=== PATIENT | male | born 2000 | race Caucasian/White ===

== ENCOUNTER 2021-04-13 14:58 | Emergency (ER) | payer MEDICAID, SELFPAY ==
--- NOTE | ~2021-04-13 | CT_ITS ---
EXAMINATION: CT HEAD WITHOUT CONTRAST CLINICAL INFORMATION: Intoxicated. Fall. COMPARISON: None available. TECHNIQUE: Contiguous axial imaging was performed from the skull base to vertex without intravenous administration of contrast. This CT examination was performed using dose optimization techniques as appropriate, variously including the following: *Automated exposure control. *Adjustment of mA and/or kV according to patient size (this includes techniques or standardized protocols for targeted exams where dose is matched to indication/reason for exam; i.e. extremities or head). *Use of iterative reconstruction technique. DLP: 711 mGy-cm FINDINGS: There is no evidence of acute intracranial hemorrhage or edematous territorial infarction. There is no abnormal attenuation within the brain parenchyma. Becerra-white matter differentiation is preserved. The ventricles are normal in size and configuration. No evidence for obstructive hydrocephalus. No abnormal mass effect or midline shift. No extra-axial fluid collections. No acute soft tissue or osseous abnormalities. Mild mucosal thickening of the paranasal sinuses. The mastoid air cells and middle ear cavities are clear. CT/CT head/brain wo con IMPRESSION: No evidence of acute intracranial hemorrhage or edematous territorial infarction.
--- NOTE | 2021-04-13 15:08 | ED_ITS ---
HPI - General Adult General Chief complaint: General Medical Stated complaint: ?ETOH/DRUG USE, ALTERED PER EMSS Time Seen by Provider: 04/13/21 15:03 Source: patient Mode of arrival: ambulatory Limitations: no limitations History of Present Illness HPI narrative: Patient comes emergency room by EMS. Police department was called because the patient was knocking on people's doors. Patient states that he was walking out today with his father, they got lost, their phone and could not make phone calls. Patient's father and the patient were knocking on people's doors to ask if they could borrow a phone to call someone who could pick them up. Patient denies using drugs. Patient states that this morning he took his methadone dose. Patient denies any symptoms, states that he feels otherwise well. Related Data Allergies Allergy/AdvReac Type Severity Reaction Status Date / Time No Known Allergies Allergy Unverified 08/06/20 19:51 [No Known Allergies*] Review of Systems Review of Systems: Constitutional : No Weight loss, No Fever, No Chills, No Night Sweats, No Fatigue, No Malaise ENT/Mouth : No Hearing loss, No Ear Pain, No Nasal Congestion, No Sinus Pain, No Hoarseness, No sore throat, No Rhinorrhea, No Swallowing Difficulty Eyes: No Eye Pain, No Swelling, No Redness, No Foreign Body, No Discharge, No Vision Changes Cardiovascular : No Chest Pain, No SOB, No Dyspnea on Exertion, No Orthopnea, No Edema, No Palpitations Respiratory : No Cough, No Sputum, No Wheezing, No Smoke Exposure, No Dyspnea Gastrointestinal : No Nausea, No Vomiting, No Diarrhea, No Constipation, No abdominal Pain, No Hematochezia, No Melena Genitourinary : no irregular bleeding, No Dysuria, No Urinary Frequency, No Hematuria, No Urinary Incontinence, No Urgency, No Flank Pain, No Urinary Flow Changes, No Hesitancy Musculoskeletal : No joint pain, No Myalgias, No Joint Swelling Skin : No Skin Lesions, No rash Neuro : No Weakness, No Numbness, No Paresthesias, No Loss of Consciousness, No Dizziness, No Headache Psych : No Anxiety/Panic, No Depression, No SI/HI/AH/VH, No Social Issues, Heme/Lymph: No Bruising, No Bleeding,No Lymphadenopathy Endocrine : No Polyuria, No Polydipsia, No Temperature Intolerance [facility] Social History Social History Advance Directives: No Advance Directives Information Provided: No Physical Exam Vital Signs: Vital Signs: Last Vital Signs Temp 98.5 F 04/13/21 15:18 Pulse 87 04/13/21 16:17 Resp 18 04/13/21 16:17 BP 122/82 04/13/21 16:17 Pulse Ox 98 04/13/21 16:17 Body Mass Index 25.3 Appearance: Alert. Oriented X3. No acute distress. Awake, alert, calm and cooperative Eyes: Pupils equal, round and reactive to light. ENT: Pharynx normal. Neck: Normal inspection. Neck supple. No lymph nodes noted. No crepitus CVS: Normal heart rate and rhythm. Pulses normal. Normal S1 and S2 Respiratory: No respiratory distress. Breath sounds normal. No Wheezing. No rales Abdomen: Soft and nontender. No rigidity. No distention. good BS x4 Skin: Skin warm and dry. Flushed Extremities: No lower extremity edema. No lower extremity edema. No Lacerations. No Rash Neuro: Oriented X 3. No motor deficit. No sensory deficit. Moving all extermities. No slurred speech. Course Course Course Narrative: Patient denies using drugs. However, patient went to sleep, oxygen saturation dropped to 80%. Patient had IV Narcan. A few seconds later, patient woke up, had fecal incontinence. I was also informed by the patient's nurse that the patient was found on the floor, had an unwitnessed fall. Head CT pending. Sign-out given to Dr. Nesbitt
[2021-04-13 15:18] VITALS: BP 130/80; PULSE 106; RESP 18; TEMP 36.9; O2SAT 98; BMI 25.3
[2021-04-13 16:17] VITALS: BP 122/82; PULSE 87; RESP 18; O2SAT 98
--- NOTE | 2021-04-13 17:06 | PC.NURSE ---
This nurse entered the room and found patient on the floor at 1630. Pt unable to tell this nurse what happened. Pt seemed confused, asking for his Great Grandma . Pt proceded to defecate in his pants. Pt helped back to bed and cleaned. Placed in hospital gown and pants. MD Khalil aware. States she will place order for patient to get a head CT scan.
[2021-04-13 17:40] VITALS: PULSE 83; RESP 20; O2SAT 97
--- NOTE | 2021-04-14 00:21 | ED_ITS ---
HPI - General Adult General Chief complaint: General Medical Stated complaint: ?ETOH/DRUG USE, ALTERED PER EMSS Time Seen by Provider: 04/13/21 15:03 Source: patient Mode of arrival: ambulatory Limitations: no limitations History of Present Illness HPI narrative: Patient been out out for long time all day without drinking enough fluids, was feeling tired patient and his father were found knocking at the doors for the help at his phone was . Patient denied use of any drugs feels just weak Related Data Allergies Allergy/AdvReac Type Severity Reaction Status Date / Time No Known Allergies Allergy Unverified 08/06/20 19:51 [No Known Allergies*] Review of Systems Review of Systems: Yes all other systems are reviewed and are negative [facility] Social History Social History Advance Directives: No Advance Directives Information Provided: No Physical Exam Vital Signs: Vital Signs: Last Vital Signs Temp 98.5 F 04/13/21 15:18 Pulse 92 04/14/21 00:43 Resp 8 L 04/14/21 00:43 BP 114/59 L 04/14/21 00:43 Pulse Ox 98 04/14/21 00:43 Body Mass Index 25.3 Appearance: Alert. Oriented X3. No acute distress. Looked tired Eyes: PERRLA, No Nystagmus ENT: Pharynx normal. Oral Mucosa moist Neck: Normal inspection. Neck supple. CVS: Normal heart rate and rhythm. Pulses normal. Respiratory: No respiratory distress. Equal air entry bilateral, no wheezing/rales/rhonchi Abdomen: Soft and nontender. Bowel sounds are present, no mass palpable, no CVA tenderness Skin: Skin warm and dry. Normal skin color. Normal skin turgor. Extremities: No lower extremity edema. No calf tenderness Neuro: Oriented X 3. No motor deficit. No sensory deficit Medical Decision Making Lab Data Labs: Lab Results 04/14/21 Range/Units 00:25 Urine Opiates Screen Not Detected (Not Detect) Ur Barbiturates Screen Not Detected (Not Detect) Ur Phencyclidine Scrn Not Detected (Not Detect) Ur Amphetamines Screen Not Detected (Not Detect) U Benzodiazepines Scrn POSITIVE H (Not Detect) Urine Cocaine Screen Not Detected (Not Detect) U Marijuana (THC) Screen Not Detected (Not Detect) Discharge Plan Discharge Clinical Impression: Weakness Patient Disposition: Home, Self-Care Instructions: Weakness (ED) Additional Instructions: Drink plenty of fluids Do not take any substance if you did Interventions: ED Discharge Assessment Last Done: 04/14/21 05:29 Discharge Date/Time: 04/14/21 05:31
[2021-04-14 00:43] VITALS: BP 114/59; PULSE 92; RESP 8; O2SAT 98
--- NOTE | 2021-04-14 00:43 | PC.NURSE ---
AMBULATED TO BATHROOM WITH NO GAIT ABNORMALITIES.
[2021-04-14 01:04] LABS: Amphetamine Screen Urine Not Detected (Not Detect); Barbiturates, Urine Not Detected (Not Detect); Benzodiazepines Screen Urine POSITIVE (Not Detect); Cannabinoid Screen Urine Not Detected (Not Detect); Cocaine Screen Urine Not Detected (Not Detect); Opiate Screen Urine Not Detected (Not Detect); Phencyclidine Screen Urine Not Detected (Not Detect)
== END 2021-04-14 05:31 | disposition home or self-care (01) ==
PROVIDERS: Internal Medicine; Emergency Provider Emergency Medicine
DX: R53.1 Weakness (principal); F11.20 Opioid dependence, uncomplicated; Z91.81 History of falling
CPT/HCPCS: 70450; 80307; 99284

== ENCOUNTER 2025-08-23 07:59 | Emergency (ER) | payer MEDICAID, SELFPAY ==
[2025-08-23 08:07] VITALS: BP 121/82; BP 138/86; PULSE 111; PULSE 113; RESP 16; TEMP 36.7; O2SAT 99; BMI 23.7
[2025-08-23 08:16] VITALS: RESP 16
[2025-08-23 08:51] LABS: Hematocrit 40.8 % (42.0-52.0); Hemoglobin 13.7 g/dl (14.0-18.0); Imm Gran Abs Auto 0.02 X10*3/uL (0.00-0.03); Imm Gran Pct Auto 0.3 % (0.0-0.4); Lymphocytes Absolute Auto 0.8 X10*3/uL (1.2-4.9); MANUAL DIFF FLAG NO; Mean Corpuscular HGB Conc 33.6 g/dl (31.0-36.0); Mean Corpuscular Hemoglobin 28.1 pg (27.0-33.0); Mean Corpuscular Volume 83.8 fL (80.0-98.0); NRBC Abs Auto 0.000 X10*3/uL (0.0-0.012); NRBC Pct Auto 0.0 /100WBC (0.0-0.2); Platelet Count 191 X10*3/uL (160-400); Red Blood Count 4.87 X10*6/uL (4.60-5.80); White Blood Count 6.7 X10*3/uL (4.8-10.8)
[2025-08-23 08:53] LABS: Appearance Urine Clear; Glucose Urine UA Negative (Negative); PH 7.5 (5.0-9.0); Specific Gravity - Urine 1.010 (1.005-1.025)
--- NOTE | 2025-08-23 08:55 | PC.NURSE ---
RE: Med rec This RN completed med rec by patient verbal confirmation this Rn also verified methadone dose with [facility] in [place]. Methadone confirmation form sent to pharmacy
[2025-08-23 09:02] LABS: Cannabinoid Screen Urine Not Detected (Not Detect)
--- NOTE | 2025-08-23 09:03 | ED.PSYCH ---
HPI - Psych General Chief Complaint: Psychiatric Symptoms Stated Complaint: CRISIS,INCR DEPRESSION PER EMS Time Seen by Provider: 08/23/25 08:14 Source: patient and EMS Mode of arrival: EMS Limitations: no limitations History of Present Illness ED Provider: SHRUTI Cedillo HPI Narrative: This is a very pleasant 25-year-old male past medical history significant for anxiety, depression, opiate use disorder on maintenance methadone presenting to the emergency department with anxiety, depression and just not feeling at ease. Patient reports recently August 19 was the anniversary of his grandfathers passing he thinks this may have triggered all of this. He reports he last use drugs a few weeks ago. He smokes cigarettes. Denies alcohol use. No visual, auditory or tactile hallucinations. Denies medical complaints at this time. Related Data Home Medications ?Medication ?Instructions ?Recorded ?Confirmed clonidine HCl 0.1 mg tablet 0.1 - 0.2 mg PO TID PRN anxiety 08/23/25 08/23/25 methadone 10 mg/mL oral 120 mg PO DAILY 08/23/25 08/23/25 concentrate (Methadone Intensol) sertraline 50 mg tablet 50 mg PO DAILY 08/23/25 08/23/25 Allergies Allergy/AdvReac Type Severity Reaction Status Date / Time No Known Allergies (No Known Allergy Verified 08/23/25 08:14 Allergies*) Review of Systems Review of Systems: Constitutional : No Weight loss, No Fever, No Chills, No Fatigue, No Malaise ENT/Mouth : No sore throat, No Rhinorrhea Eyes: No Eye Pain, No Swelling, No Redness Cardiovascular : No Chest Pain, No SOB, No Dyspnea on Exertion, No Orthopnea, No Edema, No Palpitations Respiratory : No Cough, No Sputum, No Wheezing Gastrointestinal : No Nausea, No Vomiting, No Diarrhea, No Constipation, No abdominal Pain, No Hematochezia, No Melena Genitourinary : No Dysuria, No Urinary Frequency, No Hematuria, Musculoskeletal : No joint pain, No Myalgias, No Joint Swelling Skin : No Skin Lesions, No rash Neuro : No Weakness, No Numbness, No Dizziness, No Headache Psych : + Anxiety/Panic, + Depression All other systems reviewed and are negative Yes all other systems are reviewed and are negative PMFSH Past Medical History Attestation statement: The following information was validated with the patient. Source: old records reviewed and nursing notes reviewed Social History Social History Alcohol intake: current Smoked in Last 30 Days: Yes Use of substances other than those prescribed or required for medical reasons: Yes Substance Use Type: Opiates Substance Use Type Other:: Benzos Substance Use Frequency: Occasionally Last Used Substance: Weeks (ago) Any prior treatment program specific to substance use: No Advance Directives: No Advance Directives Information Provided: Yes Physical Exam Exam: Exam: Appearance: Alert.? Oriented X3.? No acute distress.? Head: Normocephalic, atraumatic, no step-offs or deformities Eyes: Pupils equal, round and reactive to light.? Neck: Normal inspection.? Neck supple.? CVS:? Pulses normal.? Respiratory: No respiratory distress.? Abdomen: Soft and nontender.? Skin: Skin warm and dry.? Normal skin color.? Normal skin turgor.? Extremities: No lower extremity edema.? No calf ttp. 5/5 strength to bilateral upper and lower extremities Neuro: Oriented X 3.? No motor deficit.? No sensory deficit. CN 2-12 intact Vital Signs: Vital Signs: Last Vital Signs Temp 98.0 F 08/23/25 08:07 Pulse 111 H 08/23/25 08:07 Resp 16 08/23/25 08:16 BP 121/82 08/23/25 08:07 Pulse Ox 99 08/23/25 08:07 O2 Del Method Room Air 08/23/25 08:07 BMI result Body Mass Index 23.7 vss Course Reevaluation(s) Reevaluation #1: CBC unremarkable. Chemistry with no acute findings requiring intervention. UA unremarkable. Urine positive for methadone, fentanyl, barbiturates negative for ethanol. Patient seen and evaluated by care team he will be referred to a partial program. He verbalizes understanding to this in his agreeable. Educated patient on diagnosis and treatment plan, answered all question, patient verbalizes understanding. At this time patient will be discharged home, advised to return with new or worsening symptoms. Educated on worrisome signs and symptoms and when to return. At this time I feel comfortable discharge home. Time: 10:33 Medications Administered Generic Name Dose Route Start Last Admin Trade Name Freq PRN Reason Stop Dose Admin Methadone HCl 120 mg 08/23/25 09:00 08/23/25 09:24 Methadone Hcl 20 Mg/2 Ml Oral.Conc PO 120 mg DAILY [place] Administration Medical Decision Making Medical Decision Making [facility] Narrative: 89 Male presents with anxiety, depression surrounding his grandfather's passing anniversary Physical exam History and physical exam concerning for anxiety, depression. No suicidal or homicidal ideation. Unlikely schizophrenia, bipolar disorder. Will rule out metabolic derangements although unlikely. Plan medical clearance evaluation by care Differential Diagnosis Differential Diagnoses: The differential diagnosis associated with the presentation includes (History and physical exam concerning for anxiety, depression. No suicidal or homicidal ideation. Unlikely schizophrenia, bipolar disorder. Will rule out metabolic derangements although unlikely.) Admission/Observation Consideration of admission/observation: Escalation of care including admission/observation considered (unlikely ) Lab Data [facility] Lab Attestation statement: I reviewed the patient's lab results. 08/23/25 08:39 08/23/25 08:40 Labs: Lab Results 08/23/25 08/23/25 Range/Units 08:39 08:40 WBC 6.7 (4.8-10.8) X10*3/uL RBC 4.87 (4.60-5.80) X10*6/uL Hgb 13.7 L (14.0-18.0) g/dl Hct 40.8 L (42.0-52.0) % MCV 83.8 (80.0-98.0) fL MCH 28.1 (27.0-33.0) pg MCHC 33.6 (31.0-36.0) g/dl RDW 13.0 (11.0-16.0) % Plt Count 191 (160-400) X10*3/uL MPV 11.4 (9.4-12.4) fL Immature Gran % (Auto) 0.3 (0.0-0.4) % Neut % (Auto) 83.1 H (45-73) % Lymph % (Auto) 11.9 L (20-40) % [place] % (Auto) 2.4 (2-11) % Eos % (Auto) 1.7 (0-4) % Baso % (Auto) 0.6 (0-2) % Lymph # (Auto) 0.8 L (1.2-4.9) X10*3/uL [place] # (Auto) 0.2 (0.1-1.2) X10*3/uL Eos # (Auto) 0.1 (0.0-0.4) X10*3/uL Baso # (Auto) 0.0 (0.0-0.2) X10*3/uL Abs Immat Gran (auto) 0.02 (0.00-0.03) X10*3/uL Absolute Neuts (auto) 5.5 (2.0-8.3) x10*3/uL Absolute Nucleated RBC 0.000 (0.0-0.012) X10*3/uL Nucleated RBC % (auto) 0.0 (0.0-0.2) /100WBC Sodium 138 (135-145) mmol/L Potassium 4.5 (3.3-5.1) mmol/L Chloride 103 (96-108) mmol/L Carbon Dioxide 27 (22-29) mmol/L Anion Gap 13 (12-20) BUN 11 (9-16) mg/dL Creatinine 1.00 (0.5-1.4) mg/dL Estim Creat Clear Calc 125.3 Estimated GFR > 60 Random Glucose 119 H (60-115) mg/dL Calcium 9.8 (8.4-10.2) mg/dL Total Bilirubin 0.7 (0.0-1.0) mg/dL AST 22 (5-37) U/L ALT 21 (0-40) U/L Alkaline Phosphatase 50 (39-117) U/L Total Protein 7.3 (6.5-8.0) g/dL Albumin 4.8 (3.5-5.0) g/dL Urine Color Yellow Urine Appearance Clear Urine pH 7.5 (5.0-9.0) Ur Specific [place] 1.010 (1.005-1.025) Urine Protein Negative (Neg-Trace) mg/dL Urine Glucose (UA) Negative (Negative) mg/dL Urine Ketones Negative (Negative) mg/dL Urine Blood Negative (Negative) Urine Nitrite Negative (Negative) Ur Leukocyte Esterase Negative (Negative) Urine Opiates Screen Not Detected (Not Detect) Ur Buprenorphine Scrn Not Detected (Not Detect) ng/mL Ur Oxycodone Screen Not Detected (Not Detect) ng/mL Urine Methadone Screen Positive H (Not Detect) ng/mL Urine Fentanyl Screen POSITIVE H (Not Detect) Ur Barbiturates Screen POSITIVE H (Not Detect) Ur Phencyclidine Scrn Not Detected (Not Detect) Ur Amphetamines Screen Not Detected (Not Detect) U Benzodiazepines Scrn Not Detected (Not Detect) Urine Cocaine Screen Not Detected (Not Detect) U Marijuana (THC) Screen Not Detected (Not Detect) Ethyl Alcohol < 10 mg/dL Independent Historian Clinical information obtained from an independent historian. History obtained from or confirmed by: EMS External Record Review External record reviewed: Inpatient record, Office record, Outpatient record, Prior outpatient labs and Prior outpatient radiology Prescription Management I considered prescription management with: Other (methadone and home meds ) Chronic Conditions Patient?s care impacted by: Other (OUD) Critical Care Time Critical Care Time Critical Care Time: No Discharge Plan Discharge Clinical Impression: Depression, Acute anxiety Patient Disposition: Home, Self-Care Instructions: Depression (ED), Anxiety (ED) Additional Instructions: You were seen in our Emergency Department today for treatment of a behavioral health issue. It is important after your visit that you follow up with either your behavioral health provider or a primary care doctor within 7 days.? If you have trouble finding a therapist you can reach out to [place] [phone] The National Suicide and Crisis Lifeline can be reached 7 days a week 24 hours a day.? Call 988 to speak with someone.? Return for any worsening symptoms or concerns such as thoughts of self harm or harm to others. Please call 911 if you feel your mental health is worsening.? Prescriptions: No Action clonidine HCl 0.1 mg tablet 0.1 - 0.2 mg PO TID PRN (Reason: anxiety) sertraline 50 mg tablet 50 mg PO DAILY methadone [Methadone Intensol] 10 mg/mL Concentrate 120 mg PO DAILY Referrals: Mayo Tobin CNP [Primary Care Provider, Internal Medicine] Interventions: [place]-Suicide Risk Severity Scale Last Done: 08/23/25 08:18 Print Language: Mongolian
--- NOTE | 2025-08-23 09:10 | HE.PHANOTE ---
re: ashley Geiger RN at [facility] on [address] confirmed patient dose of 120 mg last taken 08/22/25 @0730.
[2025-08-23 09:15] LABS: Alanine Aminotransferase 21 U/L (0-40); Albumin Level 4.8 g/dL (3.5-5.0); Alkaline Phosphatase 50 U/L (39-117); Anion Gap 13 (12-20); Aspartate Amino Transferase 22 U/L (5-37); Blood Urea Nitrogen 11 mg/dL (9-16); Calcium 9.8 mg/dL (8.4-10.2); Carbon Dioxide 27 mmol/L (22-29); Chloride 103 mmol/L (96-108); Creatinine Clr Calc Pharmacy 125.3; Estimated Glomerular Filt Rate > 60; Potassium 4.5 mmol/L (3.3-5.1); Sodium 138 mmol/L (135-145); Total Protein 7.3 g/dL (6.5-8.0)
--- NOTE | 2025-08-23 09:21 | PHA.MEDREC ---
Pharmacy Consult ? Medication Reconciliation Reviewed med rec done by nursing. Nurse Fabi confirmed with patient he only takes clonidine, sertraline, and methadone at home.
[2025-08-23] MEDS: methADONE HCl 20 MG/2 ML ORAL.CONC 120 MG PO (09:24)
--- OUTSIDE RECORDS SUMMARY | 2025-08-23 10:33 | XMS_ITS | Clinical Summary ---
Author Organization [facility] Address [address] [place] [address] Phone Care Team Providers Care Entry Tech Name Role Phone Physician, Pcp Unknown Primary Care Provider Maria Esther vailable Allergies No known active allergies Medications No known medications Active Problems No known active problems Social History Tobacco Use Types Packs/Day Years Used Date Smoking Tobacco: Never Smokeless Tobacco: Current Tobacco Cessation:Ready to Q uit: Not Asked; Counseling Given: Not Answered Sex and Gender Information Value Date Recorded Sex Assigned at Not on file Legal Sex Male 7:47 AM EST Gender Identity Not on file Sexual Orientation Not on file Obstetrics History Last Filed Vital Signs Vital Sign Reading Time Taken Comments Blood Pressure 123/78 04/29/2025 6:00 AM EDT Pulse 72 04/29/2025 6:00 AM EDT Temperature 36.9 C (98.4 F) 04/29/2025 4:32 AM EDT Respiratory Rate 18 04/29/2025 4:32 AM EDT Oxygen Saturation 99% 04/29/2025 4:32 AM EDT Inhaled Oxygen Concentration - - Weight 81.6 kg (180 lb) 04/28/2025 11:18 PM EDT Height 185.4 cm (6' 1 ) 04/28/2025 11:18 PM EDT Body Mass Index 23.75 04/28/2025 11:18 PM EDT Plan of Treatment Health Maintenance Due Date Last Done Comments Cholesterol Screening (Lipid Panel) 10/23/2022 HIV Screening 10/23/2022 Hepatitis C Screening 10/23/2022 Social Influencers of Health Screening 10/23/2022 Depression Screening 11/20/2024 COVID-19 Vaccine ( season) 2025 11/19/2022, 10/25/2021, 04/21/2021, Additional history exists Influenza Vaccine (#1) 2025 , 11/19/2022, 07/26/2017, Additional history exists Hepatitis A Vaccines (2 of 2 - Risk 2-dose series) 09/09/2025 03/10/2025 DTaP,Tdap,and Td Vaccines (8 - Td or Tdap) 11/09/2033 11/09/2023, 03/28/2012, 06/13/2008, Additional history exists RSV Immunization Adult Patients (1 - 1-dose 75+ series) 2073 HIB Vaccines Completed 10/28/1999, 12/1998, 1998, Additional history exists IPV Vaccines Completed 08/16/2002, 01/18, 1998, Additional history exists MMR Vaccines Completed 08/16/2002, 10/28/1999 Varicella Vaccines Completed 03/26/2010, 07/27/1999 Meningococcal ACWY Vaccine Aged Out 05/20/2014, No longer eligible based on patient's age to complete this topic HPV Vaccines Completed 11/22/2023, 06/22, 05/26/2015, Additional history exists Hepatitis B Vaccines Completed 03/10/2025, 03/11/2019, 04/20/1999, Additional history exists Meningococcal B Vaccine Aged Out No l onger eligible based on patient's age to complete this topic Pneumococcal Vaccine: Pediatrics (0 to 5 Years) and At-Risk Patients (6 to 49 Years) Aged Out No longer eligible based on patient's age to complete this topic RSV Immunization Patients Under 20 months Aged Out No longer eligible based on patient's age to complete this topic Insurance [facility] MEDICAID ADVANTAGE Care Teams Entry Tech Relationship Specialty Start Date End Date Physician, Pcp Unknown PCP - General 03/30/25
--- OUTSIDE RECORDS SUMMARY | 2025-08-23 10:33 | XMS_ITS | Clinical Summary ---
Author Organization [facility] Address [address] [place], [place] [id number] Phone Care Team Providers Care Gold Stamper Name Role Phone Pcp, Unknown Primary Care Provider Unavailabl e Allergies No known active allergies Medications ondansetron (ZOFRAN-ODT) 4 MG disintegrating tablet Take 1 tablet (4 mg total) by mouth every 8 (eight) hours as needed for nausea. 12 tablet Active Social History Tobacco Use Types Packs/Day Years Used Date Smoking Tobacco: Never Assessed Education Answer Date Recorded Are you interested in more education? Not on eric e 03/18/2023 Are you concerned about learning? Not on file 03/18/2023 No 03/18/2023 No 03/18/2023 Digital Access Answer Date Recorded No 04/18/2023 No 04/18/2023 Reliable internet access at home? Not on file 04/18/2023 Device with a working camera? Not on file Sex and Gender Information Value Date Recorded Sex Assigned at Not on file Legal Sex Male 6:46 PM EST Gender Identity Not on file Sexual Orientation Not on file Last Filed Vital Signs Vital Sign Reading Time Taken Comments Blood Pressure 129/84 12/16/2021 10:45 PM EST Pulse 76 12/16/2021 10:45 PM EST Temperature 37.1 C (98.8 F) 12/16/2021 10:45 PM EST Respiratory Rate 18 12/16/2021 6:51 PM EST Oxygen Saturation 99% 12/16/2021 10:45 PM EST Inhaled Oxygen Concentration - - Weight 77.1 kg (170 lb) 12/16/2021 6:51 PM EST Height 185.4 cm (6' 1 ) 12/16/2021 6:51 PM EST Body Mass Index 22.43 12/16/2021 6:51 PM EST Plan of Treatment Not on file Medical Devices Not on file Insurance [employer] [facility] [place] [address] [place] [address] [facility] [place] [place] [address] [employer] Care Teams Gold Stamper Relationship Specialty Start Date End Date Pcp, Unknown PCP - General 12/16/21 Additional Source Comments The information contained in this document represents components of the legal health record. It is not the complete legal health record.[facility]
--- OUTSIDE RECORDS SUMMARY | 2025-08-23 10:33 | XMS_ITS | Clinical Summary ---
Author Organization Formerly [facility] Address [address] [place] [address] Care Team Providers Care Development Intern Name Role Phone Pcp, No Primary Care Provider Unavailabl curtis RolleAlem ROUTE SALES REPRESENTATIVE Unavailable [phone] KennedyPrimo Gonsalo Unavailable [phone] Sanya Arnold [facility] Unavailable [phone] Social History Tobacco Use Types Packs/Day Years Used Date Smoking Tobacco: Never Assessed Sex and Gender Information Value Date Recorded Sex Assigned at Not on file Legal Sex Male 8:34 AM EDT Gender Identity Not on file Sexual Orientation Not on file Plan of Treatment Health Maintenance Due Date Last Done Comments Hepatitis C Virus Screening 1998 HIV Screening 2011 DTaP/Tdap/Td Vaccines (1 - Tdap) 2017 Hepatitis B Vaccines (1 of 3 - 19+ 3-dose series) 2017 Influenza Vaccine 06/20/2025 COVID-19 Vaccine ( - 2023-2 5 season) 2025 HPV Vaccines (No Doses Required) Completed Pneumococcal Vaccine: Pediat leigh (0-5 Years) and At-Risk Patients (6 to 49 Years) Aged Out No longer eligible b ased on patient's age to complete this topic Insurance [facility] Care Teams Development Intern Relationship Specialty Start Date End Date Pcp, No PCP - General General Medicine 06/03/25 Alem Rolle LCSW [address] [place] [address] [phone] Desk Operator Clinical Social Work 06/11/25 Primo Kennedy [address] [place] [address] [place] [address] Clinician Social Work 06/12/25 Sanya Arnold [facility] [address] [place] [phone] Desk Operator Clinical Social Work 06/16/25
--- OUTSIDE RECORDS SUMMARY | 2025-08-23 10:33 | XMS_ITS | Clinical Summary ---
Author Organization [facility] Address [address] [place] [address] Care Team Providers Care Printing And Stamping Supervisor Name Role Phone Pcp, No Primary Care Provider Unavailabl e Allergies No known active allergies Medications methadone (Dolophine) 10 mg tablet Take 143 mg by mouth 1 (one) time each day. Active Encounters Date Type Department Care Team Description 07/16/2025 4:25 AM EDT - 07/16/2025 5:53 AM EDT Emergency [facility] [place] [address] Eunice Chew MD Drug-induced insomnia (CMS/HCC) (HCC) (Primary Dx) Discharge Disposition: Home or Self Care 07/16/2025 Travel 07/12/2025 10:48 AM EDT - 07/12/2025 11:32 AM EDT [facility] [place] [address] Windy Pendleton MD Methadone maintenance therapy patient (HCC) (Primary Dx); Medication refill; Cocaine use Discharge Disposition: Home or Self Care 07/12/2025 Travel 06/28/2025 8:05 PM EDT - 06/29/2025 12:06 AM EDT [facility] [place] [address] Diann Nice PA Anxiety (Primary Dx); Tachycardia Discharge Disposition: Home or Self Care 06/28/2025 Travel from Last 3 Months Social History Tobacco Use Types Packs/Day Years Used Date Smoking Tobacco: Never Assessed Sex and Gender Information Value Date Recorded Sex Assigned at Not on file Legal Sex Male 10:47 AM EDT Gender Identity Not on file Sexual Orientation Not on file Last Filed Vital Signs Vital Sign Reading Time Taken Comments Blood Pressure 128/89 07/16/2025 4:24 AM EDT Pulse 115 07/12/2025 11:14 AM EDT Temperature 36.6 C (97.9 F) 07/16/2025 4:24 AM EDT Respiratory Rate 20 07/16/2025 4:24 AM EDT Oxygen Saturation 100% 07/16/2025 4:24 AM EDT Inhaled Oxygen Concentration - - Weight 77.7 kg (171 lb 4.8 oz) 07/16/2025 4:24 A M EDT Height 185.4 cm (6' 1 ) 07/16/2025 4:24 AM EDT Body Mass Index 22.6 07/16/2025 4:24 AM EDT Plan of Treatment Health Maintenance Due Date Last Done Comments Hepatitis C Screening 1998 Annual Physical Exam 2016 Tdap and Td Vaccines Adult 2017 COVID-19 Vaccine (2023-2 5 season) 2025 Influenza Vaccine (#1) 2025 HIB Vaccines Aged Out No longer eligi ble based on patient's age to complete this topic HPV Vaccines (No Doses Required) Completed Hepatitis A Vaccines Aged Out No long er eligible based on patient's age to complete this topic IPV Vaccines Aged Out No longer eligi ble based on patient's age to complete this topic Meningococcal Vaccine Aged Out No wolf charley eligible based on patient's age to complete this topic Pneumococcal Vaccine: Peds ( 0 to 5 Yrs) and At-Risk Pts (6 to 49 Yrs) Aged Out No lo nger eligible based on patient's age to complete this topic RSV <20 Months Aged Out No longer frances gible based on patient's age to complete this topic Procedures Procedure Name Priority Date/Time Associated Diagnosis Comments ECG 12-LEAD STAT 06/28/2025 11:45 PM EDT MAGNESIUM STAT Add-on 06/28/2025 8:56 PM EDT BASIC METABOLIC PANEL. STAT 06/28/2025 8:56 PM EDT CBC WITH AUTO DIFFERENTIAL STAT 06/28/2025 8:56 PM EDT BASIC METABOLIC PANEL. STAT 06/28/2025 8:56 PM EDT CBC AND DIFFERENTIAL STAT 06/28/2025 8:56 PM EDT ECG 12-LEAD STAT 06/28/2025 8:43 PM EDT from Last 3 Months Results * ECG 12 lead (06/28/2025 11:45 PM EDT) Only the most recent of2 resultswithin the time period is included. Heart Rate 83 bpm TRACEMASTER RR INTERVAL 724 ms TRACEMASTER ATRIAL RATE 83 ms TRACEMASTER VA Interval 144 ms TRACEMASTER P Duration 103 ms TRACEMASTER P Horizontal [place] 13 deg TRACEMASTER P Front [place] 62 deg TRACEMASTER Q Onset 506 ms TRACEMASTER QRSD Interval 79 ms TRACEMASTER QT Interval 389 ms TRACEMASTER QTcB 457 ms TRACEMASTER QTcF 433 ms TRACEMASTER QRS HORIZONTAL AXIS 10 deg TRACEMASTER QRS [place] 61 deg TRACEMASTER I-40 Horizontal [place] 78 deg TRACEMASTER I-40 Front Goshen -14 deg TRACEMASTER T-40 Horizontal [place]hen -13 deg TRACEMASTER T-40 Front [place] 71 deg TRACEMASTER T Horizontal [place] 53 deg TRACEMASTER T Wave [place] 63 deg TRACEMASTER S-T Horizontal [place] 80 deg TRACEMASTER S-T Front [place] 65 deg TRACEMASTER ECG Impression - NORMAL ECG - TRACEMASTER ECG Impression Sinus rhythm TRACEMASTER 06/28/2025 11:4 5 PM EDT us Diann BAHENA ECG ORDERABLES Final Resul t TRACEMASTER * (ABNORMAL) Basic Metabolic Panel. (06/28/2025 8:56 PM EDT) Sodium 141 136 - 145 mmol/L LAB CHEMISTRY METHOD 06/28/2025 9:17 PM EDT [facility] Potassium 3.2(L) 3.5 - 5.1 mmol/L LAB CHEMISTRY METHOD 06/28/2025 9:17 PM EDT [facility] Chloride 102 98 - 107 mmol/L LAB CHEMISTRY METHOD 06/28/2025 9:17 PM EDT [facility] CO2 27.3 20.0 - 31.0 mmol/L LAB CHEMISTRY METHOD 06/28/2025 9:17 PM EDT [facility] Anion Gap 12(H) 3 - 11 06/28/2025 9:17 PM EDT [facility] Glucose Level 138(H) 70 - 99 mg/dL LAB CHEMISTRY METHOD 06/28/2025 9:17 PM EDT [facility] BUN 11 9 - 23 mg/dL LAB CHEMISTRY METHOD 06/28/2025 9:17 PM EDT [facility] Creatinine, Serum 1.2 0.7 - 1.3 mg/dL LAB CHEMISTRY METHOD 06/28/2025 9:17 PM EDT [facility] Glomerular Filtration Rate >=60 >=60 mL/min/1. 73 m2 06/28/2025 9:17 PM EDT [facility] Comment:Calculation based on the Chronic Kidney Disease Epidemiology Collaboration(CKD-EPI) equation refit without adjustment for race. Calcium, Total 9.3 8.7 - 10.4 mg/dL LAB CHEMISTRY METHOD 06/28/2025 9:17 PM EDT [facility] Blood Venous blood / Unknown Venipuncture / Unknown 06/28/2025 8:56 PM EDT 06/28/2025 9:00 PM EDT us Diann BAHENA LAB BLOOD ORDERABLES Final Result [facility] [id number] [place] [id number], * (ABNORMAL) CBC auto differential (06/28/2025 8:56 PM EDT) Auto WBC 10.6 4.5 - 11.5 cells X 10*3/uL 06/28/2025 9:02 PM EDT [facility] RBC 4.44(L) 4.60 - 6.00 cells X 10*6/uL 06/28/2025 9:02 PM EDT [facility] Hemoglobin 12.6(L) 14.0 - 18.0 g/dL 06/28/2025 9:02 PM EDT [facility] Hematocrit 38.9(L) 40.0 - 54.0 % 06/28/2025 9:02 PM EDT [facility] MCV 87.6 80.0 - 94.0 fL 06/28/2025 9:02 PM EDT [facility] MCH 28.4 26.0 - 32.0 pg 06/28/2025 9:02 PM EDT [facility] MCHC 32.4 32.0 - 37.0 g/dL 06/28/2025 9:02 PM EDT [facility] RDW (CV) 12.0 11.5 - 14.5 % 06/28/2025 9:02 PM EDT [facility] RDW (SD) 38.5 36.0 - 48.8 fL 06/28/2025 9:02 PM EDT [facility] Platelets 199 150 - 450 cells X 10*3/uL 06/28/2025 9:02 PM EDT [facility] MPV 11.8 9.5 - 12.3 fL 06/28/2025 9:02 PM EDT [facility] Granulocytes % 69.4 % 06/28/2025 9:02 PM EDT [facility] Comment:Percent cell count r eference ranges have been removed. Per the [employer] recommendations, these ranges should not be reported when absolute cell count reference ranges are reported as this can lead to misinterpretation of CBC data. Immature Granulocytes % 0.2 % 06/28/2025 9:02 PM EDT [facility] Comment:Immature Granulocyte s (percent and absolute counts) include neutrophilic metamyelocytes, myelocytes, and promyelocytes. Lymphocytes % 24.8 % 06/28/2025 9:02 PM EDT [facility] Monocytes % 4.2 % 06/28/2025 9:02 PM EDT [facility] Eosinophils % 0.9 % 06/28/2025 9:02 PM EDT [facility] Basophils % 0.5 % 06/28/2025 9:02 PM EDT [facility] Gran # 7.4 2.3 - 8.6 cells X 10*3/uL 06/28/2025 9:02 PM EDT [facility] Comment:Please Note: Gran # is equivalent to ANC. IMM GRAN # 0.02 0.00 - 0.05 cells X 10*3/uL 06/28/2025 9:02 PM EDT [facility] Eosinophils # 0.1 0.0 - 0.4 cells X 10*3/uL 06/28/2025 9:02 PM EDT [facility] Lymphocytes # 2.6 0.8 - 4.8 cells X 10*3/uL 06/28/2025 9:02 PM EDT [facility] MONO # 0.5 0.1 - 1.3 cells X 10*3/uL 06/28/2025 9:02 PM EDT [facility] BASOPHIL # 0.1 0.0 - 0.2 cells X 10*3/uL 06/28/2025 9:02 PM EDT [facility] Blood Venous blood / Unknown Venipuncture / Unknown 06/28/2025 8:56 PM EDT 06/28/2025 9:00 PM EDT Diann BAHENA LAB BLOOD ORDERABLES Final Result Performing Organization Address City/[facility]/ZIP Co de Phone Number LAB[facility] [id number] [place] [address], * Magnesium (06/28/2025 8:56 PM EDT) Magnesium Level 1.7 1.6 - 2.6 mg/dL LAB CHEMISTRY METHOD 06/28/2025 9:29 PM EDT [facility] Blood Venous blood / Unknown Venipuncture / Unknown 06/28/2025 8:56 PM EDT 06/28/2025 9:00 PM EDT Diann BAHENA LAB BLOOD ORDERABLES Final Result Performing Organization Address City/[facility]/ZIP Co de Phone Number LAB[facility] [id number] [place] [id number], from Last 3 Months Insurance [place]ICAID [place] Care Teams Printing And Stamping Supervisor Relationship Specialty Start Date End Date Pcp, [place] [address] PCP - General 05/17/25
[2025-08-23 10:49] VITALS: BP 129/60; PULSE 91; RESP 14; TEMP 36.7; O2SAT 97
== END 2025-08-23 10:50 | disposition home or self-care (01) ==
PROVIDERS: Emergency Provider Emergency Medicine; PCP Registered Nurse
DX: F33.1 Major depressive disorder, recurrent, moderate (principal); F11.90 Opioid use, unspecified, uncomplicated; F41.1 Generalized anxiety disorder; F17.210 Nicotine dependence, cigarettes, uncomplicated; Z51.81 Encounter for therapeutic drug level monitoring; Z79.899 Other long term (current) drug therapy
CPT/HCPCS: 36415; 80053; 80307; 81003; 85025; 99284; 99285; S9485